=== PATIENT | female | born 1995 | race Caucasian/White ===

== ENCOUNTER 2023-12-07 13:37 | Emergency (ER) | payer SELFPAY ==
[2023-12-07 13:41] VITALS: BP 120/81; PULSE 85; TEMP 36.8; O2SAT 99; BMI 29.8
--- NOTE | 2023-12-07 13:44 | XR_ITS ---
The [address] [address] Patient Name: MAIA MISHRA MRN: [id number] date: 1995 Sex: F Assigned Patient Location: ER Current Patient Location: ED.MAIN Accession/Order Number: [id number] Exam Date: 12/07/2023 14:00 Report Date: 12/07/2023 14:37 At the request of: DAMEON ENCISO Procedure: XR finger LT min 2V IMAGES REVIEWED: XR finger LT min 2V COMPARISON: None available. CLINICAL INDICATION: Left thumb injury FINDINGS/IMPRESSION: Subtle longitudinally oriented linear lucency within the intramedullary distal tuft first distal phalanx only well seen on the oblique view. DDX: Subtle nondisplaced longitudinally oriented fracture without cortical step-off versus bony vascular channel or superimposition of structures. No displaced fracture. No dislocation. Electronically authenticated by: DAVON HAMEED Date: 12/07/2023 14:37
--- NOTE | 2023-12-07 13:48 | ED_ITS ---
HPI HPI - Extremity Injury (Upper) General Chief Complaint: Extremity Injury, Upper Stated Complaint: UPPER LEFT EXTREMITY PAIN, THUMB Time Seen by Provider: 12/07/23 13:38 Source: patient Mode of arrival: walk-in Limitations: no limitations History of Present Illness HPI narrative: Patient is a 28-year-old female who presents to the emergency department for a left thumb injury that occurred about 2 hours ago while she was playing baseball. She states that the ball hit her thumb and bent it backward. She complains of pain over the first MCP joint and first metacarpal of the left figueroa d. No medications taken prior to arrival. She had no other associated injuries. She is right-hand dominant. No concern for . Related Data Previous Rx's ?Medication ?Instructions ?Recorded naproxen 500 mg tablet 500 mg PO Q12H PRN pain #14 tabs 12/07/23 Allergies Allergy/AdvReac Type Severity Reaction Status Date / Time Penicillins AdvReac Intermediate Verified 12/07/23 13:41 Opioid HPI Opioid Management Most Recent Pain and Opioid Data: Last Pain Scale 3 12/07/23 14:37 Last ED Pain Assessment 12/07/23 14:37 Last MAR Pain Assessment 12/07/23 13:56 Review of Systems ROS Constitutional Denies: fever or chills Ears, nose, mouth, and throat Denies: throat pain or nasal congestion Respiratory Denies: shortness of breath Gastrointestinal Denies: nausea or vomiting Musculoskeletal Reports: extremity pain, joint pain and limited range of motion Integumentary/Breast Denies: rash Neurological Denies: headache Hematologic/Lymphatic Denies: easy bruising or easy bleeding Exam Narrative Exam Narrative: Gen.: Awake, alert, in no distress Head: Normocephalic, atraumatic ENT: Moist mucous membranes Respiratory: No respiratory distress Extremities: Left thumb is tender at the palmar aspect of the first metacarpal joint. Mild tenderness over the fat pad of the first metacarpal in the palm of the hand. No obvious deformity or swelling noted. Limited flexion and extension at the MCP joint due to pain. Psych: Normal mood and affect Neuro: No focal neuro deficit Skin: Warm, dry, intact Constitutional Vital Signs, click to edit/add: Last Vital Signs Temp 98.2 F 12/07/23 13:41 Pulse 85 12/07/23 13:41 Resp 16 12/07/23 13:41 BP 120/81 12/07/23 13:41 Pulse Ox 99 12/07/23 13:41 Course Vital Signs Vital signs: Vital Signs Temperature 98.2 F 12/07/23 13:41 Pulse Rate 85 12/07/23 13:41 Respiratory Rate 16 12/07/23 13:41 Blood Pressure 120/81 12/07/23 13:41 Pulse Oximetry 99 12/07/23 13:41 Temperature 98.2 F 12/07/23 13:41 Pulse Rate 85 12/07/23 13:41 Respiratory Rate 16 12/07/23 13:41 Blood Pressure 120/81 12/07/23 13:41 Pulse Oximetry 99 12/07/23 13:41 MDM - Extremity Injury (Upper) MDM Narrative Medical decision making narrative: X-rays were obtained of the thumb, they are negative by my interpretation but the radiologist feels there is a subtle lucency noted only on 1 view with which he cannot rule out a subtle nondisplaced fracture of the distal tuft. Patient was made aware of these findings although she has no bony point tenderness over the distal thumb. She was encouraged to wear the finger splint for 3 to 5 days. There is no displaced fracture. She should have the thumb dominic-rayed in 7 days if she continues to have significant pain. NSAIDs given for home. Follow-up with PCP or urgent care for repeat films. Return to the ER if symptoms change or worsen. Neurovascularly intact at discharge. Medical Records Attestation: I reviewed the patient's medical records. Imaging Data XR finger: Attestation: I have reviewed the pertinent imaging results. Discharge Plan Discharge Stand Alone Forms: Portal Instructions Chief Complaint: Extremity Injury, Upper Clinical Impression: Pain of left thumb, Hyperextension injury Patient Disposition: Home, Self-Care Time of Disposition Decision: 14:47 Condition: Good Prescriptions / Home Meds: New naproxen 500 mg tablet 500 mg PO Q12H PRN (Reason: pain) Qty: 14 0RF Print Language: Occitan Instructions: Finger Sprain (ED) Additional Instructions: Wear the finger splint for 3-5 days, if you are still having significant pain in the thumb after one week, please contact your PCP or go to urgent care to have the thumb re-xrayed to evaluate for fracture Referrals: Physician,Non-Staff, MD [Primary Care Provider] - 1 week
[2023-12-07] MEDS: IBUPROFEN 600 MG TABLET PO (13:56)
[2023-12-07 14:58] VITALS: BP 120/82; PULSE 82; TEMP 36.8; O2SAT 99
== END 2023-12-07 14:59 | disposition home or self-care (01) ==
PROVIDERS: Emergency Provider Emergency Medicine
DX: M79.645 Pain in left finger(s) (principal); W21.03XA Struck by baseball, initial encounter; Y93.64 Activity, baseball
CPT/HCPCS: 73140; 99283